=== PATIENT | male | born 1955 | race Caucasian/White ===

== ENCOUNTER 2020-07-09 14:35 | Emergency (ER) | payer MEDICARE, OTHER ==
[2020-07-09] MEDS ORDERED: IBUPROFEN 800 MG TABLET PO ONE (14:57)
--- NOTE | 2020-07-09 15:04 | ER Document Report ---
ED Extremity Problem, Lower - General Chief Complaint: Ankle Injury Stated Complaint: RIGHT ANKLE PAIN,SWELLING Time Seen by Provider: 07/09/20 14:50 Primary Care Provider: KALYAN DAMON PA-C [Primary Care Provider] - Follow up as needed Mode of Arrival: Wheelchair Information source: Patient Notes: Patient is a 64-year-old male comes emergency room complaint right ankle pain and swelling. Patient states she was attempting to jump from a boat to a dock just about missed the dog landed on his toes on the edge and hyperextended the right foot and ankle he fell forward has had difficulty with ambulation since then. He did not hear any cracks or snaps did not feel any. He is having pain in the dorsum of the foot the medial malleolus and the Achilles area. He denies any other injuries or loss of consciousness. Patient only has a history of hypertension which he takes no medication for currently. And high cholesterol. Does not smoke drink or do drugs. TRAVEL OUTSIDE OF THE [place] IN LAST 30 DAYS: No - HPI Patient complains to provider of: Injury, Pain, Swelling Location: Ankle, Foot, Leg Occurred: Just prior to arrival Where: Public place Onset/Duration: Sudden, Worse Quality of pain: Achy, Sharp, Throbbing Pain Level: 4 Context: Wearing shoes Recent injury: Yes Associated symptoms: Unable to bear weight Exacerbated by: Movement, Walking Relieved by: Nothing - Related Data Allergies/Adverse Reactions: walnut Allergy (Verified 07/09/20 14:52) Home Medications: htn Past Medical History - General Information source: Patient - Social History Smoking Status: Never Smoker Chew tobacco use (# tins/day): No Frequency of alcohol use: Social Drug Abuse: None Lives with: Family, Spouse/Significant other Family History: Reviewed & Not Pertinent Patient has homicidal ideation: No - Past Medical History Cardiac Medical History: Reports: Hx Hypertension Review of Systems - Review of Systems Constitutional: No symptoms reported EENT: No symptoms reported Cardiovascular: No symptoms reported Respiratory: No symptoms reported Gastrointestinal: No symptoms reported Genitourinary: No symptoms reported Male Genitourinary: No symptoms reported Musculoskeletal: See HPI, Joint pain, Joint swelling, Muscle pain Skin: No symptoms reported Hematologic/Lymphatic: No symptoms reported Neurological/Psychological: No symptoms reported -: Yes All other systems reviewed and negative Physical Exam - Vital signs Vitals: Temp Pulse Resp BP Pulse Ox 98.4 F 85 20 158/87 H 98 07/09/20 14:51 07/09/20 14:51 07/09/20 14:51 07/09/20 14:51 07/09/20 14:51 Interpretation: Hypertensive Notes: Time of doing the chart patient's vital signs had not been dark but I have reviewed them and patient had an elevated blood pressure but not astronomical. Heart rate was normal. - Notes Notes: PHYSICAL EXAMINATION: GENERAL: Patient is a well-nourished well-developed 64-year-old male no apparent distress on examination today. HEAD: Atraumatic, normocephalic. NECK: Normal range of motion, supple without lymphadenopathy LUNGS: Breath sounds clear to auscultation bilaterally and equal. No wheezes rales or rhonchi. HEART: Regular rate and rhythm without murmurs Musculoskeletal: Examination shows the right ankle foot to be slightly larger than the left. There is some circumferential swelling but no sign of compartment syndrome. Examination of the right ankle shows it to be slightly more swollen than the left. Patient does have some good flexion and extension at the ankle and toes but with some moderate discomfort. He has good cap refill in the nailbeds of the foot. Patient has good dorsalis pedal pulse. Posterior tibial pulses are also 2+. Passive range of motion of the ankle shows increased tenderness to eversion but mild to inversion. Palpation of the Achilles heel area also shows some mild tenderness but there does not appear to be a rupture. NEUROLOGICAL: Normal speech, normal gait. Normal sensory, motor exams PSYCH: Normal mood, normal affect. SKIN: Warm, Dry, normal turgor, no rashes or lesions noted. Course - Re-evaluation Re-evalutation: 07/09/20 17:31 Patient x-ray did not show any active acute findings but did have a suggestion of possible acute anterior ligament problem. This I will put in a posterior OCL crutches nonweightbearing given he has an orthopedist that he follows up with here in [facility]. With [facility]. - Vital Signs Vital signs: Temp Pulse Resp BP Pulse Ox 98.7 F 83 20 144/72 H 97 07/09/20 17:24 07/09/20 17:24 07/09/20 17:24 07/09/20 17:24 07/09/20 17:24 Procedures - Immobilization Right Anterior Ankle Pre-Proc Neuro Vasc Exam: Normal Immobilizer type: Billy wrap, Short Leg Posterior Performed by: PCT Post-Proc Neuro Vasc Exam: Normal Alignment checked and good: Yes Discharge - Discharge Clinical Impression: Right ankle strain Qualifiers: Encounter type: initial encounter Qualified Code(s): S96.911A - Strain of u nspecified muscle and tendon at ankle and foot level, right foot, initial encounter Disposition: HOME, SELF-CARE Instructions: Use of Crutches ([facility]), Sprained Ankle ([facility]) Additional Instructions: As we discussed you need to be nonweightbearing for the next 3 days. Use the splint to keep you from stepping down on it. Highly recommend you contact your orthopedist who you say you have on Sunday for follow-up and possible office visit sometime this week. Any orthopedist around her can pull up all the x-rays in the office from here. Ice through the splint 3 times a day, please note garbage bag over top of the casting material. Tylenol and ibuprofen for pain and discomfort as we discussed. Return to ER if having concerns or problems. Forms: Elevated Blood Pressure Referrals: KALYAN DAMON PA-C [Primary Care Provider] - Follow up as needed
--- NOTE | 2020-07-09 15:53 | RADIOLOGY REPORT (SQ) ---
EXAM DESCRIPTION: ANKLE RIGHT COMPLETE IMAGES COMPLETED DATE/TIME: 07/09/2020 3:41 pm REASON FOR STUDY: Pain and swelling COMPARISON: None. NUMBER OF VIEWS: Three views. TECHNIQUE: AP, lateral, and oblique radiographic images acquired of the right ankle. LIMITATIONS: None. FINDINGS: MINERALIZATION: Normal. BONES: Corticated ossific density inferior to the medial malleolus suggestive of remote trauma. No a dditional fracture identified. No dislocation. Superior plantar calcaneal enthesophytes. JOINTS: No effusions. SOFT TISSUES: Soft tissue swelling about the medial ankle. OTHER: No other significant finding. IMPRESSION: Soft tissue swelling about the medial ankle. Chronic appearing corticated ossific densi ty inferior to the medial malleolus favored to represent remote trauma although acute component not e xcluded. TECHNICAL DOCUMENTATION: JOB ID: [id number] 2010 [employer]- All Rights Reserved Reading location - IP/workstation name: [email or web address]
--- NOTE | 2020-07-09 15:55 | RADIOLOGY REPORT (SQ) ---
EXAM DESCRIPTION: FOOT RIGHT COMPLETE IMAGES COMPLETED DATE/TIME: 07/09/2020 3:41 pm REASON FOR STUDY: Pain and swelling COMPARISON: None. NUMBER OF VIEWS: Three views. TECHNIQUE: AP, lateral and oblique radiographic images acquired of the right foot. LIMITATIONS: None. FINDINGS: MINERALIZATION: Normal. BONES: No acute fracture or dislocation. No worrisome bone lesions. Superior and plantar calcaneal enthesophytes. Midfoot osteophytosis. JOINTS: No effusions. SOFT TISSUES: No soft tissue swelling. No foreign body. OTHER: No other significant finding. IMPRESSION: 1. No evidence of acute bony abnormality of the right foot. 2. Soft tissue swelling about the ankle. TECHNICAL DOCUMENTATION: JOB ID: [id number] 2010 [employer]- All Rights Reserved Reading location - IP/workstation name: [email or web address]
--- NOTE | 2020-07-09 15:58 | RADIOLOGY REPORT (SQ) ---
EXAM DESCRIPTION: TIBIA FIBULA RIGHT IMAGES COMPLETED DATE/TIME: 07/09/2020 3:41 pm REASON FOR STUDY: Pain COMPARISON: None. NUMBER OF VIEWS: Two views. TECHNIQUE: Two radiographic images acquired of the right tibia and fibula to include the knee and an kle in at least one projection. LIMITATIONS: None. FINDINGS: MINERALIZATION: Normal. BONES: No acute fracture or dislocation. No worrisome bone lesions. SOFT TISSUES: No obvious swelling or foreign body. OTHER: No other significant finding. IMPRESSION: NEGATIVE STUDY OF THE RIGHT TIBIA AND FIBULA. NO RADIOGRAPHIC EVIDENCE OF ACUTE INJURY. TECHNICAL DOCUMENTATION: JOB ID: [id number] 2010 [employer]- All Rights Reserved Reading location - IP/workstation name: [email or web address]
[2020-07-09 17:25] VITALS: BP 144/72
== END 2020-07-09 17:52 | disposition home or self-care (01) ==
LOC: ER 14:35
PROC: 2W3QX1Z Immobilization of Right Lower Leg using Splint (ICD-10-PCS; principal; 2020-07-09)
DX: S96.911A Strain of unspecified muscle and tendon at ankle and foot level, right foot, initial encounter (principal); M25.571 Pain in right ankle and joints of right foot; M79.89 Other specified soft tissue disorders; W19.XXXA Unspecified fall, initial encounter; I10 Essential (primary) hypertension; E78.00 Pure hypercholesterolemia, unspecified; M79.10 Myalgia, unspecified site
CPT/HCPCS: 99283; 73610; 73630; 73590; 29515; A9270